=== PATIENT | male | born 1985 | race Caucasian/White ===

== ENCOUNTER 2017-04-07 07:23 | Emergency (ER) | payer OTHER ==
[~2017-04-07] VITALS: Ht 175.2 cm; Wt 74.8 kg
[~2017-04-07 07:23] MED LIST: AMOXICILLIN500 MG PO; AMOXIL500 MG PO; BACTRIM PEDIAT200 ML PO; BACTROBAN OINT22 GM PO; CIPRO500 MG PO; CLARITIN10 MG PO; HYDROCODONE BIT1 T11 PO; KEFLEX250 MG/5 M PO; LOMOTIL 0.025 M1 TAB PO; MOTRIN600 MG PO; MOTRIN800 MG PO; NKHM; SUDAFED60 MG PO; TYLENOL W/ CODEI5 ML PO; TYLENOL W/CODE480 ML PO; VICODIN ES 7501 TAB PO; XYLOCAINE JELLY T; ZITHROMAX Z PA250 MG PO; ZOFRAN ODT8 MG PO; Zofran4 MG PO
[2017-04-07] MEDS ORDERED: PROVENTIL HFA6.7 GM INH (09:23)
== END 2017-04-07 09:19 | disposition home or self-care (01) ==
LOC: ED 07:23
DX: J45.909 Unspecified asthma, uncomplicated (principal)

== ENCOUNTER 2019-01-12 22:45 | Emergency (ER) | payer OTHER ==
[~2019-01-12] VITALS: Ht 175.2 cm; Wt 61.2 kg
[~2019-01-12 22:45] MED LIST changes: +PROVENTIL HFA6.7 GM INH
[2019-01-12] MEDS ORDERED: AMOXICILLI400 MG/51 PO (22:57)
== END 2019-01-12 23:16 | disposition home or self-care (01) ==
LOC: ED 22:45
DX: J03.90 Acute tonsillitis, unspecified (principal); K14.8 Other diseases of tongue; M54.2 Cervicalgia

== ENCOUNTER 2019-09-11 04:57 | Emergency (ER) | payer SELFPAY ==
[~2019-09-11] VITALS: Ht 170.1 cm; Wt 68.9 kg
[~2019-09-11 04:57] MED LIST changes: +AMOXICILLI400 MG/51 PO
[2019-09-11 05:45] LABS: BASO % 0.6 % (0.0-1.0); EOS # 0.3 10*3/uL (0.0-0.4); EOS % 4.4 % (1.0-4.0); HEMATOCRIT 41.8 % (42.0-52.0); LYMPH # 2.1 10*3/uL (1.3-4.4); LYMPH % 30.3 % (27.0-41.0); MEAN CELL VOLUME 92.1 fl (80.0-94.0); MEAN CORPUSCULAR HGB 31.9 pg (27.0-31.0); MEAN CORPUSCULAR HGB CONC 34.7 g/dl (33.0-37.0); MEAN PLATELET VOLUME 9.4 fl (9.6-12.3); MONO # 0.7 10*3/uL (0.1-1.0); MONO % 9.5 % (3.0-9.0); NEUT # 3.9 10*3/uL (2.3-7.9); NEUT % 55.1 % (47.0-73.0); PLATELET COUNT AUTOMATED 238 10*3/uL (130-400); RED BLOOD COUNT 4.54 10*6/uL (4.50-5.90); RED CELL DISTRI WIDTH 11.9 % (0-14.5); WHITE BLOOD COUNT 7.1 10*3/uL (4.8-10.8)
== END 2019-09-11 06:08 | disposition home or self-care (01) ==
LOC: ED 04:57
PROVIDERS: Emergency Medicine
DX: K62.5 Hemorrhage of anus and rectum (principal)

== ENCOUNTER 2020-02-26 06:27 | Emergency (ER) | payer SELFPAY ==
[~2020-02-26] VITALS: Ht 175.2 cm; Wt 73.9 kg
[2020-02-26 08:05] LABS: BASO % 0.5 % (0.0-1.0); EOS # 0.2 10*3/uL (0.0-0.4); EOS % 2.5 % (1.0-4.0); HEMATOCRIT 42.1 % (42.0-52.0); LYMPH # 1.9 10*3/uL (1.3-4.4); LYMPH % 22.5 % (27.0-41.0); MEAN CELL VOLUME 88.1 fl (80.0-94.0); MEAN CORPUSCULAR HGB 29.7 pg (27.0-31.0); MEAN CORPUSCULAR HGB CONC 33.7 g/dl (33.0-37.0); MEAN PLATELET VOLUME 9.3 fl (9.6-12.3); MONO # 0.7 10*3/uL (0.1-1.0); NEUT # 5.7 10*3/uL (2.3-7.9); NEUT % 66.4 % (47.0-73.0); PLATELET COUNT AUTOMATED 276 10*3/uL (130-400); RED BLOOD COUNT 4.78 10*6/uL (4.50-5.90); RED CELL DISTRI WIDTH 11.6 % (0-14.5); WHITE BLOOD COUNT 8.5 10*3/uL (4.8-10.8)
[2020-02-26 08:15] LABS: ACT PARTIAL THROMBO TIME 28.3 SECONDS (20.0-32.1)
[2020-02-26 08:19] LABS: ALBUMIN 3.8 gm/dl (3.1-4.5); ALKALINE PHOSPHATASE 65 U/L (45-117); BUN 21 mg/dl (7-24); CHLORIDE 108 mmol/L (98-107); POTASSIUM 3.6 mmol/L (3.5-5.1); SGOT/AST 12 IU/L (3-35); SGPT/ALT 41 U/L (12-78); SODIUM 142 mmol/L (136-145); TOTAL PROTEIN 7.1 gm/dL (6.4-8.2)
[2020-02-26] MEDS ORDERED: MILK OF MA400 MG/5 M PO (08:56)
== END 2020-02-26 09:03 | disposition home or self-care (01) ==
LOC: ED 06:27
PROVIDERS: Family Medicine
DX: K59.00 Constipation, unspecified (principal); Z79.899 Other long term (current) drug therapy

== ENCOUNTER 2020-11-12 17:39 | Emergency (ER) | payer SELFPAY ==
[~2020-11-12] VITALS: Wt 73.9 kg
[~2020-11-12 17:39] MED LIST changes: +MILK OF MA400 MG/5 M PO
[2020-11-12 17:58] LABS: BASO % 0.5 % (0.0-1.0); EOS # 0.2 10*3/uL (0.0-0.4); EOS % 4.4 % (1.0-4.0); HEMATOCRIT 42.9 % (42.0-52.0); LYMPH # 1.3 10*3/uL (1.3-4.4); LYMPH % 32.6 % (27.0-41.0); MEAN CELL VOLUME 88.5 fl (80.0-94.0); MEAN CORPUSCULAR HGB 30.9 pg (27.0-31.0); MEAN PLATELET VOLUME 9.3 fl (9.6-12.3); MONO # 0.4 10*3/uL (0.1-1.0); MONO % 10.4 % (3.0-9.0); NEUT # 2.1 10*3/uL (2.3-7.9); NEUT % 51.6 % (47.0-73.0); PLATELET COUNT AUTOMATED 273 10*3/uL (130-400); RED BLOOD COUNT 4.85 10*6/uL (4.50-5.90); WHITE BLOOD COUNT 4.1 10*3/uL (4.8-10.8)
[2020-11-12 18:14] LABS: ALBUMIN 3.8 gm/dl (3.1-4.5); BUN 12 mg/dl (7-24); CHLORIDE 109 mmol/L (98-107); CREATININE 1.01 mg/dL (0.70-1.30); SGOT/AST 16 IU/L (3-35); SGPT/ALT 26 U/L (12-78); SODIUM 141 mmol/L (136-145); TOTAL PROTEIN 7.3 gm/dL (6.4-8.2)
[2020-11-12 18:17] LABS: ALKALINE PHOSPHATASE 71 U/L (45-117); TROPONIN I < 0.015 ng/ml (<0.045)
== END 2020-11-12 21:44 ==
LOC: ED 17:39
PROVIDERS: Physician Assistant
DX: R07.9 Chest pain, unspecified (principal)

== ENCOUNTER 2024-04-22 23:02 | Emergency (ER) | payer SELFPAY ==
[~2024-04-22] VITALS: Ht 177.8 cm; Wt 90.7 kg
== END 2024-04-22 23:45 | disposition home or self-care (01) ==
LOC: ED 23:02
DX: J35.1 Hypertrophy of tonsils (principal); R22.42 Localized swelling, mass and lump, left lower limb

== ENCOUNTER 2024-05-01 10:08 | Emergency (ER) | payer SELFPAY | END 2024-05-01 10:43 | disposition left against medical advice (07) | LOC: ED 10:08 | DX: R05.9 Cough, unspecified (principal); R50.9 Fever, unspecified; Z53.21 Procedure and treatment not carried out due to patient leaving prior to being seen by health care provider ==

== ENCOUNTER 2024-05-02 12:37 | Emergency (ER) | payer SELFPAY ==
[~2024-05-02] VITALS: Ht 175.2 cm; Wt 78.5 kg
== END 2024-05-02 15:15 | disposition home or self-care (01) ==
LOC: ED 12:37
DX: J06.9 Acute upper respiratory infection, unspecified (principal); Z20.822 Contact with and (suspected) exposure to COVID-19